=== PATIENT | male | born 1990 | race American Indian/Alaskan Native ===

== ENCOUNTER 2018-03-11 01:52 | Emergency (ER) | payer OTHER ==
[~2018-03-11] VITALS: Ht 182.9 cm; Wt 86.2 kg
== END 2018-03-11 08:07 | disposition home or self-care (01) ==
LOC: ED 01:52
DX: F15.10 Other stimulant abuse, uncomplicated (principal); F14.10 Cocaine abuse, uncomplicated; F17.200 Nicotine dependence, unspecified, uncomplicated
CPT/HCPCS: 36415; 80053; 81001; 85025; 99283

== ENCOUNTER 2018-04-06 19:35 | Emergency (ER) | payer OTHER ==
[~2018-04-06] VITALS: Ht 182.9 cm; Wt 86.2 kg
[2018-04-06] MEDS ORDERED: CEPHALEXIN500 MG PO (21:01)
[2018-04-06] MEDS ORDERED: TRAMADOL HCL50 MG PO (21:01)
== END 2018-04-06 21:18 | disposition home or self-care (01) ==
LOC: ED 19:35
DX: K08.89 Other specified disorders of teeth and supporting structures (principal); F17.200 Nicotine dependence, unspecified, uncomplicated
CPT/HCPCS: 99282

== ENCOUNTER 2021-11-09 22:19 | Emergency (ER) | payer MEDICAID, OTHER ==
[~2021-11-09] VITALS: Ht 180.3 cm; Wt 72.6 kg
[~2021-11-09 22:19] MED LIST: CEPHALEXIN500 MG PO; TRAMADOL HCL50 MG PO; VENTOLIN HFA18 GM INH; ZITHROMAX1 GM PO; ZOFRAN4 MG PO
--- OUTSIDE RECORDS SUMMARY | 2021-11-09 22:26 | XMS ---
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 TRYING TO GET PATIENT ASSISTANCE/HELP WITH TREATMENT. CONTACT NUMBER IS [phone]. - PHONE NUMBER LISTED FOR PATIENT IS NOT PATIENT CONTACT NUMBER. - IF PATIENT IS WILLING/ACCEPTING TREATMENT - ED STAFF PLEASE CONTACT A\T\amp; D SERVICES - [facility]- [phone] AND REQUEST AN ASSESSMENT TO BE DONE IN THE ED IF PATIENT IS WILLING TO ACCEPT TREATMENT. - PLEASE PROVIDE PATIENT WITH W CONTACT NUMBER [phone]. E.D. VISIT COUNT (12 MO.) 1 [facility] H. 50 [facility] 14 [facility] 2 [facility] 13 [facility]. 2 [facility] 3 [facility] 1 [facility] TOTAL 86 NOTE: Visits indicate total known visits. 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 TYPE: Emergency DIAGNOSES: - Psychiatric Evaluation - Personal history of other specified conditions 11/07/2021 22:44 Christa RUIZ TYPE: Emergency DIAGNOSES: - Malingerer [conscious simulation] - Homelessness unspecified 11/07/2021 14:33 Christa RUIZ TYPE: Emergency DIAGNOSES: - Other stimulant abuse, uncomplicated - Other psychoactive substance abuse, uncomplicated 11/05/2021 21:35 Walter RUIZ TYPE: Emergency COMPLAINT: - NAUSEA, BODY ACHES, DIZZY, EMOTIONAL ISSUES DIAGNOSES: 0. Other stimulant abuse with withdrawal 2. Nausea 3. Delusional disorders 11/05/2021 14:42 Walter RUIZ TYPE: Emergency COMPLAINT: - WITHDRAWAL DIAGNOSES: 0. Other stimulant abuse with withdrawal 2. Hypokalemia 11/04/2021 19:00 [facility] DIAGNOSES: - Mental Health Eval - Mental Health Evaluation - Other psychoactive substance abuse, uncomplicated 11/03/2021 14:55 [facility] Vilma RUIZ M.C. TYPE: Emergency DIAGNOSES: - Other stimulant abuse, uncomplicated - Suicidal Thoughts - Suicidal ideations 11/02/2021 03:44 [facility] Vilma RUIZ M.C. TYPE: Emergency DIAGNOSES: - Other stimulant abuse, uncomplicated - Withdrawal (Drug) - Detox Evaluation 11/01/2021 23:24 Christa RUIZ TYPE: Emergency 11/01/2021 20:15 Christa RUIZ TYPE: Emergency DIAGNOSES: - Homelessness unspecified - Other psychoactive substance abuse, uncomplicated 11/01/2021 04:07 Christa RUIZ TYPE: Emergency DIAGNOSES: - Other psychoactive substance abuse, uncomplicated 11/01/2021 01:54 Sinan RUIZ TYPE: Emergency DIAGNOSES: - Detox Evaluation - Wants To Detox 10/30/2021 12:53 Darshan RUIZ TYPE: Emergency DIAGNOSES: - Other stimulant abuse, uncomplicated 10/29/2021 23:26 Christa RUIZ TYPE: Emergency DIAGNOSES: - Other psychoactive substance abuse, uncomplicated 10/28/2021 09:43 Christa RUIZ TYPE: Emergency DIAGNOSES: - Other stimulant abuse, uncomplicated - Anxiety disorder, unspecified - Other stimulant dependence, uncomplicated 10/28/2021 00:59 [facility] Vilma RUIZ M.C. TYPE: Emergency DIAGNOSES: - Suicidal ideation - Suicidal Thoughts 10/27/2021 20:06 Christa RUIZ TYPE: Emergency DIAGNOSES: - Homelessness unspecified - Other psychoactive substance abuse, uncomplicated Plus 66 More Visits INPATIENT VISIT TRACKING (12 MO.) No inpatient visits to display in this time frame [email or web address]
[2021-11-10] MEDS ORDERED: SEROQUEL50 MG PO (22:37)
[2021-11-10] MEDS ORDERED: ZYPREXA5 MG PO (22:37)
== END 2021-11-10 11:37 | disposition home or self-care (01) ==
LOC: ED 22:19
DX: R45.851 Suicidal ideations (principal); F20.9 Schizophrenia, unspecified; F17.200 Nicotine dependence, unspecified, uncomplicated; Z02.89 Encounter for other administrative examinations; Z20.822 Contact with and (suspected) exposure to COVID-19
CPT/HCPCS: 36415; 80053; 81001; 84443; 85025; 99285; C9803; G0480; U0003

== ENCOUNTER 2021-11-10 20:57 | Emergency (ER) | payer MEDICAID, OTHER ==
[~2021-11-10] VITALS: Ht 180.3 cm; Wt 79.6 kg
--- OUTSIDE RECORDS SUMMARY | 2021-11-10 21:07 | XMS ---
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 No recent Security Events currently on file CRITERIA MET - [facility] - 2 Visits in 30 Days - 6 ED Visits in 6 Months - [facility] - 3 Facilities in 90 Days CARE PROVIDERS [facility] Current PHONE: Unknown JEREMY WILSON Internal Medicine Current PHONE: [phone] Care Guidelines exist for the following facilities: [facility] ( 02/08/2020 ) Care History Medical/Surgical 09/10/2018 [facility] - UPDATE- 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 TRYING TO GET PATIENT ASSISTANCE/HELP WITH TREATMENT. CONTACT NUMBER IS [phone]. - PHONE NUMBER LISTED FOR PATIENT IS NOT PATIENT CONTACT NUMBER. - IF PATIENT IS WILLING/ACCEPTING TREATMENT - ED STAFF PLEASE CONTACT A\T\amp; D SERVICES - [facility]- [phone] AND REQUEST AN ASSESSMENT TO BE DONE IN THE ED IF PATIENT IS WILLING TO ACCEPT TREATMENT. - PLEASE PROVIDE PATIENT WITH W CONTACT NUMBER [phone]. E.D. VISIT COUNT (12 MO.) 1 [facility] H. 50 [facility] 14 [facility] 2 [facility] 13 [facility]. 2 [facility] 3 [facility] 2 [facility]. TOTAL 87 NOTE: Visits indicate total known visits. 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 TYPE: Emergency DIAGNOSES: - Psychiatric [...] abuse with withdrawal 2. Hypokalemia 11/04/2021 19:00 [facility] Neida RUIZ TYPE: Emergency DIAGNOSES: - Mental Health Eval - Mental Health Evaluation - Other psychoactive substance abuse, uncomplicated 11/03/2021 14:55 [facility] SARA Bang TYPE: Emergency DIAGNOSES: - Other stimulant abuse, uncomplicated - Suicidal Thoughts - Suicidal ideations 11/02/2021 03:44 [facility] SARA Bang TYPE: Emergency DIAGNOSES: - Other stimulant abuse, uncomplicated - Withdrawal (Drug) - Detox Evaluation 11/01/2021 23:24 Christa RUIZ TYPE: Emergency 11/01/2021 20:15 Christa RUIZ TYPE: Emergency DIAGNOSES: - Homelessness unspecified - Other psychoactive substance abuse, uncomplicated 11/01/2021 04:07 Christa RUIZ TYPE: Emergency DIAGNOSES: - Other psychoactive substance abuse, uncomplicated 11/01/2021 01:54 Sinan Nguyễn Neida RUIZ TYPE: Emergency DIAGNOSES: - Detox Evaluation - Wants To Detox 10/30/2021 12:[facility] DIAGNOSES: - Other stimulant abuse, uncomplicated 10/29/2021 23:26 Christa RUIZ TYPE: Emergency DIAGNOSES: - Other psychoactive substance abuse, uncomplicated 10/28/2021 09:43 Christa RUIZ TYPE: Emergency DIAGNOSES: - Other stimulant abuse, uncomplicated - Anxiety disorder, unspecified - Other stimulant dependence, uncomplicated 10/28/2021 00:59 [facility] Vilma RUIZ M.C. TYPE: Emergency DIAGNOSES: - Suicidal ideation - Suicidal Thoughts Plus 67 More Visits INPATIENT VISIT TRACKING (12 MO.) No inpatient visits to display in this time frame [email or web address]
[2021-11-10] MEDS ORDERED: SEROQUEL50 MG PO (22:37)
[2021-11-10] MEDS ORDERED: ZYPREXA5 MG PO (22:37)
== END 2021-11-10 22:45 | disposition home or self-care (01) ==
LOC: ED 20:57
DX: F20.9 Schizophrenia, unspecified (principal); F17.200 Nicotine dependence, unspecified, uncomplicated
CPT/HCPCS: 99281

== ENCOUNTER 2021-11-11 03:06 | Emergency (ER) | payer MEDICAID, OTHER ==
[~2021-11-11] VITALS: Ht 180.3 cm; Wt 79.4 kg
[~2021-11-11 03:06] MED LIST changes: +SEROQUEL50 MG PO; +ZYPREXA5 MG PO
--- OUTSIDE RECORDS SUMMARY | 2021-11-11 03:10 | XMS ---
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 TRYING TO GET PATIENT ASSISTANCE/HELP WITH TREATMENT. CONTACT NUMBER IS [phone]. - PHONE NUMBER LISTED FOR PATIENT IS NOT PATIENT CONTACT NUMBER. - IF PATIENT IS WILLING/ACCEPTING TREATMENT - ED STAFF PLEASE CONTACT A\T\amp; D SERVICES - [facility]- [phone] AND REQUEST AN ASSESSMENT TO BE DONE IN THE ED IF PATIENT IS WILLING TO ACCEPT TREATMENT. - PLEASE PROVIDE PATIENT WITH W CONTACT NUMBER [phone]. E.D. VISIT COUNT (12 MO.) 1 [facility] H. 50 [facility] 14 [facility] 2 [facility] 13 [facility]. 2 [facility] 3 [facility] 3 [facility]. TOTAL 88 NOTE: Visits indicate total known visits. 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 TYPE: Emergency DIAGNOSES: - [...] abuse with withdrawal 2. Hypokalemia 11/04/2021 19:00 [facility] Neida RUIZ TYPE: Emergency DIAGNOSES: - Mental Health Eval - Mental Health Evaluation - Other psychoactive substance abuse, uncomplicated 11/03/2021 14:55 [facility] Vilma RUIZ M.C. TYPE: Emergency DIAGNOSES: - Other stimulant abuse, uncomplicated - Suicidal Thoughts - Suicidal ideations 11/02/2021 03:44 [facility] Vilma RUIZ M.C. TYPE: Emergency DIAGNOSES: - Other stimulant abuse, uncomplicated - Withdrawal (Drug) - Detox Evaluation 11/01/2021 23:24 Christa RUIZ TYPE: Emergency 11/01/2021 20:15 Christa RUIZ TYPE: Emergency DIAGNOSES: - Homelessness unspecified - Other psychoactive substance abuse, uncomplicated 11/01/2021 04:07 Christa RUIZ TYPE: Emergency DIAGNOSES: - Other psychoactive substance abuse, uncomplicated 11/01/2021 01:54 [facility]an [facility] Neida RUIZ TYPE: Emergency DIAGNOSES: - Detox Evaluation - Wants To Detox 10/30/2021 12:53 Darshan RUIZ TYPE: Emergency DIAGNOSES: - Other stimulant abuse, uncomplicated 10/29/2021 23:26 Christa RUIZ TYPE: Emergency DIAGNOSES: - Other psychoactive substance abuse, uncomplicated 10/28/2021 09:43 Christa RUIZ TYPE: Emergency DIAGNOSES: - Other stimulant abuse, uncomplicated - Anxiety disorder, unspecified - Other stimulant dependence, uncomplicated Plus 68 More Visits INPATIENT VISIT TRACKING (12 MO.) No inpatient visits to display in this time frame [email or web address]
--- NOTE | 2021-11-12 06:47 | EKG ---
[facility] [address] [place] [address] Signed Sinus bradycardia with sinus arrhythmia Otherwise normal ECG No previous ECGs available Confirmed by RONNI BAILEY MD ([id number]) on 11/12/2021 6:47:02 AM Electronically Signed By: RONNI BAILEY MD 11/12/21 0647 PATIENT NAME: UDAYJACOB ZULLY Ruiz Electrocardiogram DATE OF : [birth year] PHYSICIAN: RONNI BAILEY MD REPORT #: [id number] REPORT IS CONFIDENTIAL AND NOT TO BE RELEASED WITHOUT AUTHORIZATION
== END 2021-11-12 13:08 | disposition home or self-care (01) ==
LOC: ED 03:06
DX: F20.9 Schizophrenia, unspecified (principal); R45.851 Suicidal ideations; F17.200 Nicotine dependence, unspecified, uncomplicated; Z79.899 Other long term (current) drug therapy; Z20.822 Contact with and (suspected) exposure to COVID-19
CPT/HCPCS: 36415; 80048; 80053; 81001; 84439; 84443; 85025; 93005; 93010; 99285-25; A9270; C9803; G0480; U0003